=== PATIENT | male | born 1990 | race Two or more races ===

== ENCOUNTER 2023-10-06 23:33 | Emergency (ER) | payer OTHER ==
[~2023-10-06] VITALS: Ht 188 cm; Wt 86.2 kg
[2023-10-07 00:29] VITALS: BP 136/79; TEMP 98.1; O2SAT 100
== END 2023-10-07 00:29 ==
LOC: ER 23:37
DX: M25.511 Pain in right shoulder (principal)
CPT/HCPCS: 73030-TC